=== PATIENT | male | born 1970 | race Hispanic/Latino ===

== ENCOUNTER 2018-12-03 17:20 | Emergency (ER) | payer SELFPAY ==
--- NOTE | 2018-12-03 18:37 | Emergency Department Report ---
Blank Doc - Documentation Documentation: 48-year-old male that presents with dizziness. This initial assessment/diagnostic orders/clinical plan/treatment(s) is/are subject to change based on patient's health status, clinical progression and re- assessment by fellow clinical providers in the ED. Further treatment and workup at subsequent clinical providers discretion. Patient/guardians urged not to elope from the ED as their condition may be serious if not clinically assessed and managed. Initial orders include: 1- Patient sent to [facility] for further evaluation and treatment 2- labs 3- orthostatic vitals
[2018-12-03 19:09] LABS: Bacteria,Urine 1+ /HPF (Negative); Bilirubin,Urine NEG (Negative); Blood,Urine NEG (Negative); Color,Urine Colorless (Yellow); Mucus,Urine FEW /HPF; Protein,Urine <15 mg/dL mg/dL (Negative); Urobilinogen,Urine < 2.0 mg/dL (<2.0); WBC,Urine < 1.0 /HPF (0.0-6.0)
[2018-12-03 19:30] LABS: Basophils % (Auto) 0.1 % (0.0-1.8); Eosinophils # (Auto) 0.2 K/mm3 (0.0-0.4); Eosinophils % (Auto) 2.8 % (0.0-4.3); Hemoglobin 11.7 gm/dl (11.8-15.2); Lymphocytes # (Auto) 1.2 K/mm3 (1.2-5.4); Lymphocytes % (Auto) 16.5 % (13.4-35.0); Mean Corpuscular HGB Conc 33 % (32-34); Mean Corpuscular Volume 86 fl (84-94); Monocytes # (Auto) 0.5 K/mm3 (0.0-0.8); Monocytes % (Auto) 7.4 % (0.0-7.3); Platelet Count 389 K/mm3 (140-440); Red Blood Count 4.17 M/mm3 (3.65-5.03); Red Cell Distribution Width 17.2 % (13.2-15.2)
[2018-12-03 19:54] LABS: Alanine Aminotransferase 7 units/L (7-56); Albumin 4.3 g/dL (3.9-5); BUN/Creatinine Ratio 9; Blood Urea Nitrogen 9 mg/dL (9-20); Hemolysis Index 11
[2018-12-03] MEDS ORDERED: NACL 0.9% 1000 ML 1,000 ML IV ONE (21:40)
[2018-12-03] MEDS ORDERED: TORADOL IV ONE (21:40)
[2018-12-03] MEDS ORDERED: DECADRON IV ONE (21:40)
[2018-12-03] MEDS ORDERED: ANTIVERT PO ONE (21:41)
[2018-12-03] MEDS ORDERED: NEURONTIN PO ONE (21:41)
--- NOTE | 2018-12-04 03:42 | Emergency Department Report ---
ED General Adult HPI - General Chief complaint: Medical Clearance Stated complaint: DIZZY Time Seen by Provider: 12/03/18 18:36 Source: patient Mode of arrival: Ambulatory Limitations: No Limitations - History of Present Illness Initial comments: Patient is a 48-year-old white male with a history of chronic low back pain who presents with the ED with acute exacerbation of his chronic low back pain with lightheadedness for the last 1 week, worse in the last 2 days. Patient states that he recently moved to this area and is yet to follow up with the pain clinic. Patient says that he was admitted about 2 weeks ago at [facility] for anemia and had various tests performed which were all unremarkable after being given blood transfusions. Patient states that he has not been taking any medication at all for his chronic low back pain because he is waiting for a pain clinic follow-up in the next week or so. Patient denies chest pain, shortness of breath, fever, chills, abdominal pain, headache, dizziness, dysuria, urinary frequency and urgency, fall or traumatic injury. MD Complaint: chronic low back pain; lightheadedness -: Gradual, month(s) (>3) Location: head, back Radiation: extremity (Bilateral LE) Severity scale (0 -10): 3 Quality: aching, sharp Consistency: constant Improves with: none Worsens with: movement Associated Symptoms: denies other symptoms. denies: confusion, chest pain, cough, diaphoresis, fever/chills, loss of appetite, malaise, nausea/vomiting, rash, shortness of breath, weakness Treatments Prior to Arrival: none - Related Data Previous Rx's Medication Instructions Recorded Last Taken Type Gabapentin [Neurontin] 300 mg PO Q8HR #30 capsule 12/04/18 Unknown Rx Naproxen [Naprosyn] 500 mg PO Q12H PRN #20 tablet 12/04/18 Unknown Rx predniSONE [Deltasone] 60 mg PO QDAY #15 tab 12/04/18 Unknown Rx tiZANidine [Zanaflex 4mg TAB] 4 mg PO Q8H PRN #21 tablet 12/04/18 Unknown Rx Allergies Allergy/AdvReac Type Severity Reaction Status Date / Time No Known Allergies Allergy Unverified 12/03/18 18:41 ED Review of Systems ROS: Stated complaint: DIZZY Other details as noted in HPI Constitutional: denies: chills, fever Eyes: denies: eye pain, eye discharge, vision change ENT: denies: ear pain, throat pain Respiratory: denies: cough, shortness of breath, wheezing Cardiovascular: denies: chest pain, palpitations Endocrine: no symptoms reported Gastrointestinal: denies: abdominal pain, nausea, diarrhea Genitourinary: denies: urgency, dysuria Musculoskeletal: back pain, arthralgia, myalgia. denies: joint swelling Skin: denies: rash, lesions Neurological: other (lightheadedness). denies: headache, weakness, paresthesias Psychiatric: denies: anxiety, depression Hematological/Lymphatic: denies: easy bleeding, easy bruising ED Past Medical Hx - Past Medical History Additional medical history: CHRONIC BACK PAIN WITH 3 SURGERIES L5-S1,ANEMIA WITH TRANSFUSIONS - Social History Smoking Status: Current Every Day Smoker Substance Use Type: Alcohol, Heroin - Medications Home Medications: Home Medications Medication Instructions Recorded Confirmed Last Taken Type Gabapentin [Neurontin] 300 mg PO Q8HR #30 capsule 12/04/18 Unknown Rx Naproxen [Naprosyn] 500 mg PO Q12H PRN #20 tablet 12/04/18 Unknown Rx predniSONE [Deltasone] 60 mg PO QDAY #15 tab 12/04/18 Unknown Rx tiZANidine [Zanaflex 4mg TAB] 4 mg PO Q8H PRN #21 tablet 12/04/18 Unknown Rx ED Physical Exam - General Limitations: No Limitations General appearance: alert, in no apparent distress - Head Head exam: Present: atraumatic, normocephalic, normal inspection - Eye Eye exam: Present: normal appearance, PERRL, EOMI Pupils: Present: normal accommodation - ENT ENT exam: Present: normal exam, normal orophraynx, mucous membranes moist, TM's normal bilaterally, normal external ear exam - Neck Neck exam: Present: normal inspection, full ROM. Absent: tenderness - Respiratory Respiratory exam: Present: normal lung sounds bilaterally. Absent: respiratory distress, wheezes, rhonchi, stridor, chest wall tenderness, accessory muscle use, decreased breath sounds - Cardiovascular Cardiovascular Exam: Present: normal rhythm, normal heart sounds. Absent: systolic murmur, diastolic murmur, rubs, gallop - GI/Abdominal GI/Abdominal exam: Present: soft, normal bowel sounds. Absent: tenderness, guarding, rigid, hyperactive bowel sounds, hypoactive bowel sounds - Rectal Rectal exam: Present: deferred - Extremities Exam Extremities exam: Present: normal inspection, full ROM, normal capillary refill - Back Exam Back exam: Present: normal inspection, full ROM, tenderness (palpable lumbosacral paraspinal musculoskeletal tenderness), muscle spasm, paraspinal tenderness - Neurological Exam Neurological exam: Present: alert, oriented X3, CN II-XII intact, normal gait, reflexes normal - Psychiatric Psychiatric exam: Present: normal affect, normal mood, anxious - Skin Skin exam: Present: warm, dry, intact, normal color. Absent: rash ED Course Vital Signs 12/03/18 12/03/18 12/03/18 18:38 22:28 22:58 Temperature 98.7 F Pulse Rate 47 L Respiratory 18 20 20 Rate Blood Pressure 183/90 Blood Pressure [Right] O2 Sat by Pulse 100 Oximetry 12/04/18 12/04/18 04:01 04:16 Temperature 98.1 F Pulse Rate 59 L Respiratory 20 20 Rate Blood Pressure Blood Pressure 154/90 [Right] O2 Sat by Pulse 99 99 Oximetry - Reevaluation(s) Reevaluation #1: 12/04/18 06:48 This is a 48-year-old male with a history of chronic low back pain and anemia who presents with a ED with acute exacerbation of his chronic low back pain. In the ED, patient is alert and oriented 3 and is not in distress, resting comfortably in the room and fully interactive exam. In the ED Gayla patient was treated for pain and lab test results were reviewed and are all nonactionable. Patient slept most of the time in the ED after being treated for pain. Patient was belligerent when discharged from the ED stating that his pain is not well controlled despite the fact that he had been sleeping soundly while snoring in the room during the treatment after being treated for pain. Patient was discharged home on pain medications and muscle relaxants and was advised to return to the ED immediately if symptoms get worse, otherwise follow up with his primary care physician or pain clinic as previously scheduled. ED Medical Decision Making - Lab Data Result diagrams: 12/03/18 19:20 12/03/18 19:20 - Medical Decision Making This is a 48-year-old male with a history of chronic low back pain and anemia who presents with a ED with acute exacerbation of his chronic low back pain. In the ED, patient is alert and oriented 3 and is not in distress, resting comfortably in the room and fully interactive exam. In the ED Gayla patient was treated for pain and lab test results were reviewed and are all nonactionable. Patient slept most of the time in the ED after being treated for pain. Patient was belligerent when discharged from the ED stating that his pain is not well controlled despite the fact that he had been sleeping soundly while snoring in the room during the treatment after being treated for pain. Patient was discharged home on pain medications and muscle relaxants and was advised to return to the ED immediately if symptoms get worse, otherwise follow up with his primary care physician or pain clinic as previously scheduled. - Differential Diagnosis chronic low back pain; Lumbar radiculopathy; Muscle spasm of back Critical care attestation.: If time is entered above; I have spent that time in minutes in the direct care of this critically ill patient, excluding procedure time. ED Disposition Clinical Impression: Spasm of muscle of lower back Chronic low back pain with sciatica Qualifiers: Back pain laterality: unspecified Sciatica laterality: sciatica laterality unspecified Qualified Code(s): M54.40 - Lumbago with sciatica, unspecified side Disposition: DC-01 TO HOME OR SELFCARE Is pt being admited?: No Does the pt Need Aspirin: No Condition: Stable Instructions: Lumbar Radiculopathy (ED), Arthralgia (ED), Muscle Spasm (ED) Additional Instructions: Take medications with food, drink plenty of fluids and follow-up with your primary care physician in 7-10 days for reevaluation. Return to the ED immediately if symptoms get worse. Prescriptions: predniSONE [Deltasone] 60 mg PO QDAY #15 tab Naproxen [Naprosyn] 500 mg PO Q12H PRN #20 tablet PRN Reason: Pain , Severe (7-10) Gabapentin [Neurontin] 300 mg PO Q8HR #30 capsule tiZANidine [Zanaflex 4mg TAB] 4 mg PO Q8H PRN #21 tablet PRN Reason: Muscle Spasm Referrals: [facility] MD WEI [Primary Care Provider] - 3-5 Days Time of Disposition: 03:45 Print Language: YI
[2018-12-04 04:17] VITALS: BP 154/90
[2018-12-04 08:20] LABS: Bilirubin,Urine NEG (Negative); Blood,Urine NEG (Negative); Color,Urine Amber (Yellow); Mucus,Urine 3+ /HPF; Urobilinogen,Urine < 2.0 mg/dL (<2.0)
== END 2018-12-04 04:34 | disposition home or self-care (01) ==
LOC: ED 17:20
DX: M62.830 Muscle spasm of back (principal); M54.40 Lumbago with sciatica, unspecified side; R42 Dizziness and giddiness; D64.9 Anemia, unspecified; F17.200 Nicotine dependence, unspecified, uncomplicated; F11.10 Opioid abuse, uncomplicated; Z79.899 Other long term (current) drug therapy
CPT/HCPCS: 36415; 80053; 81001; 84484; 85025; 96361; 96374; 96375; 99284; J1100; J1885; J7030

== ENCOUNTER 2018-12-04 04:43 | Emergency (ER) | payer SELFPAY ==
[2018-12-04 09:09] LABS: Amphetamine Screen,Urine PRESUMPTIVE NEGATIVE; Benzodiazepines Screen,Urine PRESUMPTIVE NEGATIVE; Cannabinoid Screen,Urine PRESUMPTIVE NEGATIVE; Cocaine Screen,Urine PRESUMPTIVE NEGATIVE; Methadone Screen,Urine PRESUMPTIVE NEGATIVE; Opiate Screen,Urine PRESUMPTIVE NEGATIVE
[2018-12-04 10:04] LABS: Mucus,Urine 3+ /HPF
[2018-12-04 10:35] LABS: Bilirubin,Urine NEG (Negative); Blood,Urine NEG (Negative); Color,Urine Amber (Yellow); Urobilinogen,Urine < 2.0 mg/dL (<2.0)
[2018-12-04] MEDS: TORADOL PO ONE ×2 (11:51→12:37)
--- NOTE | 2018-12-04 12:24 | Emergency Department Report ---
<SUZY SOLORIO - Last Filed: 12/04/18 12:22> ED General Adult HPI - General Chief complaint: Psych Stated complaint: SUICIDAL Time Seen by Provider: 12/04/18 08:20 Source: patient Mode of arrival: Ambulatory Limitations: No Limitations - History of Present Illness Initial comments: The patient initially presented to the emergency department with a chief complaint of chronic back pain and upon discharge he made a comment that he would rather be than to deal with this. Upon my evaluation the patient he tells me that he is really depressed and is tired of living. When asked if he was suicidal the patient says no but states that if I had access to a gun or knife I would end it all. Patient denies any homicidal ideations or auditory hallucinations or visual hallucinations. -: unknown Severity scale (0 -10): 7 Improves with: none Worsens with: none Associated Symptoms: denies other symptoms Treatments Prior to Arrival: none - Related Data Previous Rx's Medication Instructions Recorded Last Taken Type Gabapentin [Neurontin] 300 mg PO Q8HR #30 capsule 12/04/18 12/03/18 Rx Naproxen [Naprosyn] 500 mg PO Q12H PRN #20 tablet 12/04/18 12/03/18 Rx predniSONE [Deltasone] 60 mg PO QDAY #15 tab 12/04/18 12/03/18 Rx tiZANidine [Zanaflex 4mg TAB] 4 mg PO Q8H PRN #21 tablet 12/04/18 12/03/18 Rx hydrOXYzine PAMOATE [Vistaril] 25 mg PO BID PRN #20 capsule 12/06/18 Unknown Rx Allergies Allergy/AdvReac Type Severity Reaction Status Date / Time No Known Allergies Allergy Unverified 12/03/18 18:41 ED Review of Systems Comment: All other systems reviewed and negative Constitutional: denies: chills, fever Eyes: denies: eye pain, eye discharge, vision change ENT: denies: ear pain, throat pain Respiratory: denies: cough, shortness of breath, wheezing Cardiovascular: denies: chest pain, palpitations Endocrine: no symptoms reported Gastrointestinal: denies: abdominal pain, nausea, diarrhea Genitourinary: denies: urgency, dysuria Musculoskeletal: back pain. denies: joint swelling, arthralgia Skin: denies: rash, lesions Neurological: denies: headache, weakness, paresthesias Psychiatric: suicidal thoughts. denies: anxiety, depression Hematological/Lymphatic: denies: easy bleeding, easy bruising ED Past Medical Hx - Past Medical History Previous Medical History?: Yes Hx Hypertension: Yes Additional medical history: CHRONIC BACK PAIN WITH 3 SURGERIES L5-S1,ANEMIA WITH TRANSFUSIONS - Surgical History Past Surgical History?: Yes Additional Surgical History: Back - Social History Smoking Status: Current Every Day Smoker Substance Use Type: Heroin - Medications Home Medications: Home Medications Medication Instructions Recorded Confirmed Last Taken Type Gabapentin [Neurontin] 300 mg PO Q8HR #30 capsule 12/04/18 12/04/18 12/03/18 Rx Naproxen [Naprosyn] 500 mg PO Q12H PRN #20 tablet 12/04/18 12/04/18 12/03/18 Rx predniSONE [Deltasone] 60 mg PO QDAY #15 tab 12/04/18 12/04/18 12/03/18 Rx tiZANidine [Zanaflex 4mg TAB] 4 mg PO Q8H PRN #21 tablet 12/04/18 12/04/18 12/03/18 Rx hydrOXYzine PAMOATE [Vistaril] 25 mg PO BID PRN #20 capsule 12/06/18 Unknown Rx ED Physical Exam - General Limitations: No Limitations General appearance: alert, in no apparent distress - Head Head exam: Present: atraumatic, normocephalic - Eye Eye exam: Present: normal appearance, PERRL, EOMI - ENT ENT exam: Present: mucous membranes moist - Neck Neck exam: Present: normal inspection - Respiratory Respiratory exam: Present: normal lung sounds bilaterally. Absent: respiratory distress - Cardiovascular Cardiovascular Exam: Present: regular rate, normal rhythm. Absent: systolic murmur, diastolic murmur, rubs, gallop - GI/Abdominal GI/Abdominal exam: Present: soft, normal bowel sounds. Absent: distended, tenderness - Rectal Rectal exam: Present: deferred - Extremities Exam Extremities exam: Present: normal inspection - Back Exam Back exam: Present: normal inspection - Neurological Exam Neurological exam: Present: alert, oriented X3, CN II-XII intact. Absent: motor sensory deficit - Psychiatric Psychiatric exam: Present: normal mood, suicidal ideation, other (flat affect). Absent: homicidal ideation - Skin Skin exam: Present: warm, dry, intact, normal color. Absent: rash ED Disposition Clinical Impression: Anxiety, Chronic pain, Depression Disposition: DC-01 TO HOME OR SELFCARE Condition: Stable Instructions: Chronic Pain (ED), Depression (ED), Suicide Prevention for Adults (ED), Anxiety (ED) Additional Instructions: Take the medication as prescribed. Follow-up with your doctor or with the doctor/clinic provided. Return if symptoms worsen as indicated by your discharge instructions. Prescriptions: hydrOXYzine PAMOATE [Vistaril] 25 mg PO BID PRN #20 capsule PRN Reason: Anxiety Referrals: PRIMARY CARE, [Primary Care Provider] - 3-5 Days [facility] [Outside] - 3-5 Days <KIRT SU - Last Filed: 12/06/18 10:59> ED Review of Systems ROS: Stated complaint: SUICIDAL Other details as noted in HPI ED Course Vital Signs 12/04/18 12/04/18 12/04/18 04:51 07:56 13:00 Temperature 97.5 F L 97.8 F 98.1 F Pulse Rate 43 L 100 H 62 Respiratory 12 18 18 Rate Blood Pressure 175/86 Blood Pressure 181/86 167/86 [Left] O2 Sat by Pulse 100 100 100 Oximetry 12/04/18 12/04/18 12/04/18 19:46 20:00 20:10 Temperature 98.8 F Pulse Rate 68 Respiratory 16 16 16 Rate Blood Pressure Blood Pressure 166/81 [Left] O2 Sat by Pulse 100 100 Oximetry 12/05/18 12/05/18 12/05/18 02:00 03:01 03:15 Temperature 98.3 F Pulse Rate 59 L 67 58 L Respiratory 18 21 19 Rate Blood Pressure 150/73 169/94 Blood Pressure 172/84 [Left] O2 Sat by Pulse 98 99 99 Oximetry 12/05/18 12/05/18 12/05/18 03:30 03:45 04:00 Temperature Pulse Rate 56 L 55 L 56 L Respiratory 15 19 18 Rate Blood Pressure 165/83 166/91 173/91 Blood Pressure [Left] O2 Sat by Pulse 99 99 98 Oximetry 12/05/18 12/05/18 12/05/18 07:00 07:01 08:01 Temperature 98.5 F Pulse Rate 53 L 47 L Respiratory 18 19 17 Rate Blood Pressure 147/71 156/73 Blood Pressure 172/82 [Left] O2 Sat by Pulse 99 98 98 Oximetry 12/05/18 12/05/18 12/05/18 09:01 13:00 19:20 Temperature 99.6 F 98.6 F Pulse Rate 46 L 49 L 54 L Respiratory 18 18 20 Rate Blood Pressure 155/74 Blood Pressure 108/88 176/87 [Left] O2 Sat by Pulse 99 98 100 Oximetry 12/05/18 12/05/18 12/05/18 21:46 22:06 22:36 Temperature Pulse Rate 58 L Respiratory 16 15 Rate Blood Pressure Blood Pressure 178/96 [Left] O2 Sat by Pulse Oximetry 12/06/18 12/06/18 12/06/18 01:00 08:20 08:22 Temperature 97.8 F 98.4 F Pulse Rate 60 47 L Respiratory 20 16 20 Rate Blood Pressure Blood Pressure 126/70 171/86 [Left] O2 Sat by Pulse 100 98 Oximetry - Reevaluation(s) Reevaluation #1: 12/06/18 10:58 Patient has been any ED for several days with history of chronic back pain with complaints of suicidal ideation. Patient received several evaluations by mental health providers who have currently rescinded his 1013 and recommended discharge and outpatient psychiatric follow-up. Recommended psychiatric medicat ion will be prescribed ED Medical Decision Making - Lab Data Result diagrams: 12/05/18 03:02 12/05/18 03:02 Critical care attestation.: If time is entered above; I have spent that time in minutes in the direct care of this critically ill patient, excluding procedure time. ED Disposition Is pt being admited?: No Time of Disposition: 10:59
--- NOTE | 2018-12-04 13:34 | Consultation ---
History of Present Illness - Reason for Consult Consult date: 12/04/18 Reason for consult: Mental Health Evaluation Requesting physician: SUZY SOLORIO - Chief Complaint Chief complaint: 'I don't know what to do" - History of Present Psychiatric Illness 48 y.o. white male who presented to the Er for chroninc back apain and SI's. Today the patient was anxious during the assessment. 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 He stated that his life have changed since the accident. He stated that he do not have insurance nor employment at this time. He stated that he have applied for disability and is pending a pain mgmt appt. He stated that the "system isn't moving fast enough" for him. Per the notes, the patient endorsed SI's. He would not confirm or deny saying that when asked (reference Si's.) He stated that his biggest issues is his pain mgmt. He stated that he have a hx of depression and took a antidepressant in the past. He rate his depression/anxiety 6/10, with 10 being the worse. He denies erratic sleep and a poor appetite. He denies recreational drug use and alcohol consumption (etoh). Medications and Allergies Allergies Allergy/AdvReac Type Severity Reaction Status Date / Time No Known Allergies Allergy Unverified 12/03/18 18:41 Home Medications Medication Instructions Recorded Confirmed Last Taken Type Gabapentin [Neurontin] 300 mg PO Q8HR #30 capsule 12/04/18 12/04/18 12/03/18 Rx Naproxen [Naprosyn] 500 mg PO Q12H PRN #20 tablet 12/04/18 12/04/18 12/03/18 Rx predniSONE [Deltasone] 60 mg PO QDAY #15 tab 12/04/18 12/04/18 12/03/18 Rx tiZANidine [Zanaflex 4mg TAB] 4 mg PO Q8H PRN #21 tablet 12/04/18 12/04/18 12/03/18 Rx Past psychiatric history - Past Medical History Past Medical History: other (Chronic pain) Past Surgical History: No surgical history - past Psychiatric treatment and history psychiatric treatment history: Hx of depression. Denies a fam psy hx. Mental Status Exam - Vital signs Last Vital Signs Temp 97.8 F 12/04/18 07:56 Pulse 100 H 12/04/18 07:56 Resp 18 12/04/18 07:56 BP 181/86 12/04/18 07:56 Pulse Ox 100 12/04/18 07:56 - Exam Narrative exam: MSE: Appearance: cooperative Behavior: regular eye contact Speech: regular rate and low tone Mood: "anxious" Affect: congruent to mood Thought Process: circumstantial Thought Content: denies HI's and AVH's Motor Activity: ambulatory Cognition: A/O x 3 Insight: variable Judgment: variable Results Abnormal lab results 12/04/18 12/04/18 Range/Units 09:37 09:37 Salicylates < 0.3 L (2.8-20.0) mg/dL Acetaminophen < 5.0 L (10.0-30.0) ug/mL All other labs normal. Assessment and Plan Assessment and plan: Impression: MDD, recurrent. Unspecified Anxiety DO. Today the patient was anxious during the assessment. DDx: Somatic Symptom DO Recommendation/Plan: Reevaluate the patient's 1013 in 24 hours. Start Vistaril 25 mg PO BID for anxiety. Discussed risks/benefits of SSRI's with the patient, he want to think about medication treatment for the next 24 hours. Dispo: If the patient's 1013 is rescinded in 24 hours, he can follow up with [facility] for outpatient psy services. Staffed with Dr Rowan Kasper.
[2018-12-04] MEDS: VISTARIL PO SCH ×2 (14:17→22:05)
[2018-12-04] MEDS ORDERED: TORADOL PO ONE (19:00)
--- NOTE | 2018-12-05 02:40 | Emergency Department Report ---
Ondina Doc - Documentation Documentation: 02:40 Charge nurse notified me that at approx 11 pm, pt's nurse noticed that another pt's pill bottle was missing from her work space. The bottle contained 22 Zoloft pills. Mr Hurley was asked if he took the pill bottle but he denied. Security then obtained the footage and pt was reportedly seen taking the pill bottle then returning to his room. Pt then came out of his room and threw the bottle in the trash. This trash can has since been emptied. No pills were foun d in pt's room. I spoke w/ pt, who is A&O x 3. He states he came out of the room and took a juice from the counter and then threw away the juice container. Pt denies taking the bottle or the pills, also denies ingesting the pills. Vitals are stable. Will administer IV fluids, place pt on the monitor, obtain EKG and labs, and call Poison Control.
[2018-12-05] MEDS ORDERED: NACL 0.9% 1000 ML 1,000 ML IV ONE (02:51)
[2018-12-05 03:12] LABS: Basophils # (Auto) 0.1 K/mm3 (0.0-0.1); Eosinophils # (Auto) 0.2 K/mm3 (0.0-0.4); Eosinophils % (Auto) 2.4 % (0.0-4.3); Hematocrit 31.5 % (35.5-45.6); Hemoglobin 10.5 gm/dl (11.8-15.2); Lymphocytes # (Auto) 1.9 K/mm3 (1.2-5.4); Lymphocytes % (Auto) 18.5 % (13.4-35.0); Mean Corpuscular HGB Conc 33 % (32-34); Mean Corpuscular Volume 87 fl (84-94); Monocytes # (Auto) 0.9 K/mm3 (0.0-0.8); Platelet Count 356 K/mm3 (140-440); Red Blood Count 3.63 M/mm3 (3.65-5.03); Red Cell Distribution Width 17.5 % (13.2-15.2)
[2018-12-05 03:31] LABS: Alanine Aminotransferase 7 units/L (7-56); Albumin 3.7 g/dL (3.9-5); BUN/Creatinine Ratio 29; Blood Urea Nitrogen 26 mg/dL (9-20); Calcium 8.6 mg/dL (8.4-10.2); Hemolysis Index 5
[2018-12-05] MEDS: VISTARIL PO SCH ×2 (11:03→21:56)
--- NOTE | 2018-12-05 14:22 | Progress Note ---
Subjective - Reason for Consult Consult date: 12/05/18 Reason for consult: Psychiatric Follow-up Evaluation - Chief Complaint Chief complaint: "I feel great" Patient is a 48 y.o. white male who presented to the ER for chroninc back apain and SI's. Today the patient is cooperative but anxious (less) during the assessment. 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 He stated that his life have changed since the accident. He stated that he do not have insurance nor employment at this time. Patient continues to report chronic back pain 11/03, with 10 being the worse. He reports sleep fluctuations and good appetite. He denies SI/HI's, A/VH's, and delusions. Mental Status Exam - Vital signs Last Vital Signs Temp 98.5 F 12/05/18 07:00 Pulse 46 L 12/05/18 09:01 Resp 18 12/05/18 09:01 BP 155/74 12/05/18 09:01 Pulse Ox 99 12/05/18 09:01 - Exam Narrative exam: Mental Status Exam Appearance: cooperative Behavior: regular eye contact Speech: regular rate and low tone Mood: "I feel great " Affect: congruent to mood Thought Process: circumstantial Thought Content: denies SI/HI's, AVH's, and delusions Motor Activity: ambulatory Cognition: A/O x 3 Insight: variable Judgment: variable Assessment and Plan Impression: MDD, recurrent. Unspecified Anxiety DO. Today the patient is cooperative but anxious during the assessment. DDx: Somatic Symptom DO Recommendation/Plan: 1. Will reevaluate the patient's 1013 in 24 hours. 2. Continue Vistaril 25 mg PO BID for anxiety. Discussed risks/benefits of SSRI's with the patient, he want to think about medication treatment for the next 24 hours. Disposition: If the patient's 1013 is rescinded in 24 hours, he can follow up with [facility] for outpatient psychiatric services. Staffed with Dr. Rowan Kasper.
[2018-12-05] MEDS ORDERED: TORADOL PO ONE (22:00)
--- NOTE | 2018-12-06 09:44 | Progress Note ---
Subjective - Reason for Consult Consult date: 12/06/18 Reason for consult: Psychiatry Follow-up - Chief Complaint Chief complaint: 'I feel better" 48 y.o. white male who presented to the [facility] for chroninc back pain and SI's. Today the patient was calm and cooperative during the assessment. He stated that he plan to follow up with his assigned "pain doctor." He is optimistic that his life will get better. He rate his anxiety 0/10, with 10 being the worse. He denies SI/HI's and AVH's. He denies any side effects from his medication. Mental Status Exam - Vital signs Last Vital Signs Temp 97.8 F 12/06/18 01:00 Pulse 60 12/06/18 01:00 Resp 20 12/06/18 08:22 BP 126/70 12/06/18 01:00 Pulse Ox 100 12/06/18 01:00 - Exam Narrative exam: MSE: Appearance: calm, cooperative Behavior: regular eye contact Speech: regular rate and low tone Mood: "much better" Affect: congruent to mood Thought Process: logiqal Thought Content: denies SI/HI's and AVH's Motor Activity: ambulatory Cognition: A/O x 3 Insight: fair Judgment: fair Assessment and Plan Impression: MDD, recurrent. Unspecified Anxiety DO. Today the patient was anxious during the assessment. The patient is no threat to self. DDx: Somatic Symptom DO Recommendation/Plan: Rescind 1013. Continue Vistaril 25 mg PO BID for anxiety. Discussed risks/benefits of SSRI's with the patient, he prefer talk therapy. Discussed generalized coping skills with the patient, he verbalized understanding. Dispo: The patient can follow up with [facility] for outpatient psy services. Staffed with Dr Rowan Kasper.
[2018-12-06 10:19] VITALS: BP 171/86
[2018-12-06] MEDS: VISTARIL PO SCH (11:17)
== END 2018-12-06 11:23 | disposition home or self-care (01) ==
LOC: ED 04:43 → EEVIPCON 04:43 → ED 12-06 11:23
DX: G89.29 Other chronic pain (principal); M54.9 Dorsalgia, unspecified; F32.9 Major depressive disorder, single episode, unspecified; F41.9 Anxiety disorder, unspecified
CPT/HCPCS: 36415; 80053; 80307; 81001; 83735; 85025; J7030; 80320; G0480; Q0177